=== PATIENT | female | born 1980 | race Caucasian/White ===

== ENCOUNTER → 2020-09-19 | Outpatient (CLI) | payer OTHER, BC ==
[~2020-09-19] MED LIST: BIRTH CONTROL1 EACH PO; GLUMETZA500 MG PO; HUMALOG MIX 75/23 ML SC; JANUVIA100 MG PO; OMNICEF300 MG PO
== END | disposition home or self-care (01) ==
LOC: COVID19 14:57
PROVIDERS: ATTEND Internal Medicine
DX: U07.1 COVID-19 (principal)